=== PATIENT | male | born 1980 | race Caucasian/White ===

== ENCOUNTER → 2021-10-03 | Outpatient (CLI) | payer OTHER ==
--- NOTE | 2021-10-03 09:18 | RAD ---
INDICATION: Reason: VASECTOMY 4 MO AGO; RT TESTICLE PAIN / Spl. Instructions: / History: COMPARISON: None. TECHNIQUE: Grayscale, color and spectral doppler ultrasound images obtained of the scrotum. FINDINGS: Right Testicle: 45 x 27 x 18 mm. Vascular flow is identified. Left Testicle: 43 x 30 x 19 mm. Vascular flow is identified. Mildly increased vascularity to the right epididymis. IMPRESSION: * Mild increase in vascularity to the right epididymis. Would correlate with symptoms since causes s uch as mild epididymitis could have this appearance. Electronically signed by: Brien Cuello MD (10/03/2021 9:15 AM) [id number]
== END ==
LOC: US 08:07
PROVIDERS: ATTEND Family Medicine
DX: N50.89 Other specified disorders of the male genital organs (principal); Z98.52 Vasectomy status
CPT/HCPCS: 76870